=== PATIENT | female | born 1965 | race African-American/Black ===

== ENCOUNTER 2017-10-21 05:35 | Emergency (ER) | payer BC, OTHER ==
[2017-10-21 05:37] VITALS: BP 115/66; PULSE 69; TEMP 97.8; BMI 24.0
--- NOTE | 2017-10-21 07:58 | PDOC ---
History of Present Illness - General Chief Complaint: Vaginal Bleeding Stated Complaint: VAGINAL BLEEDING Time Seen by Provider: 10/21/17 07:21 History Source: Patient Exam Limitations: No Limitations - History of Present Illness Initial Comments: This is a 52 YOF who is currently living in a half-way and who uses crack cocaine (last use 2 wks ago) but otherwise no reported PMH, who p/w irregular menstrual period for the past two months, with continuous bright red menstruation for the past 20 days. She is soaking 5-6 medium-sized pads per day. She has been feeling more tired than normal lately, but otherwise denies any new sxs (no pain anywhere, no NICOLAS, lightheadedness, dizziness, vision changes , fainting, numbness, tingling, weakness, difficulty walking/balancing, chest pain, SOB, abdominal pain, dysuria, vaginal discharge, nausea, vomiting, diarrhea, constipation, rectal bleeding, or other sxs). She has no regular doctor and has not had a pelvic exam in years, though she denies h/o fibroids. Past History - Past Medical History Allergies/Adverse Reactions: Allergies Allergy/AdvReac Type Severity Reaction Status Date / Time No Known Allergies Allergy Verified 10/21/17 05:36 Home Medications: Ambulatory Orders NK [No Known Home Medication] 08/12/16 - Suicide/Smoking/Psychosocial Hx Smoking History: Current every day smoker Have you smoked in the past 12 months: Yes Number of Cigarettes Smoked Daily: 10 Information on smoking cessation initiated: No Hx Alcohol Use: No Drug/Substance Use Hx: No Review of Systems - Review of Systems Able to Perform ROS?: Yes Constitutional: Yes: Other (tiredness). No: Chills, Fever, Unexplained wgt Loss HEENTM: No: Nose Congestion, Throat Pain Respiratory: No: Cough, Shortness of Breath Cardiac (ROS): No: Chest Pain, Palpitations ABD/GI: No: Constipated, Diarrhea, Nausea, Vomiting : Yes: Other (vaginal bleeding). No: Burning, Dysuria Musculoskeletal: No: Back Pain, Neck Pain Integumentary: No: Bruising, Rash Neurological: No: Headache, Numbness, Tingling, Weakness, Dizziness Endocrine: No: Unexplained Weight Gain, Unexplained Weight Loss *Physical Exam - Vital Signs Last Vital Signs Temp Pulse Resp BP Pulse Ox 97.8 F 69 20 115/66 100 10/21/17 05:36 10/21/17 05:36 10/21/17 05:36 10/21/17 05:36 10/21/17 05:36 - Physical Exam General Appearance: Yes: Nourished, Appropriately Dressed, Other (sleeping on hospital bed, appears tired, asks to be left alone to sleep and asks for a breakfast tray, answering questions appropriately). No: Apparent Distress HEENT: positive: EOMI, ALESIA, Normal Voice, Hearing Grossly Normal. negative: Scleral Icterus (R), Scleral Icterus (L), Nasal Congestion Neck: positive: Trachea midline, Supple. negative: Tender, Rigid Respiratory/Chest: positive: Lungs Clear, Normal Breath Sounds. negative: Respiratory Distress, Crackles, Rhonchi, Stridor, Wheezing Cardiovascular: positive: Regular Rhythm, Regular Rate, S1, S2. negative: Edema , JVD, Murmur Female Pelvic Exam: positive: other (pants soaked through with about 1/2 cup bright red blood, external exam normal other than moderate amount of blood with active bleeding, bimanual exam with uterine fullness but no firm masses, no tenderness, normal adnexa and no CMT) Gastrointestinal/Abdominal: positive: Normal Bowel Sounds, Flat, Soft. negative : Tender, Organomegaly, Pulsatile Mass, Guarding Musculoskeletal: positive: Normal Inspection. negative: Decreased Range of Motion, Vertebral Tenderness Extremity: positive: Normal Capillary Refill, Normal Inspection, Normal Range of Motion. negative: Tender, Cyanosis Integumentary: positive: Normal Color, Dry, Warm. negative: Erythema, Rash, Bruising Neurologic: positive: cras II-XII NML intact (grossly), Fully Oriented, Alert, Normal Mood/Affect, Normal Response, Motor Strength 5/5. negative: EOM Palsy, Facial Droop, Numbness, Sensory Deficit, Confused, Disoriented ED Treatment Course - LABORATORY CBC & Chemistry Diagram: 10/21/17 09:06 10/21/17 09:06 Medical Decision Making - Medical Decision Making Adult female patient p/w vaginal bleeding. Initial Vital Signs Temp Pulse Resp BP Pulse Ox 97.8 F 69 20 115/66 100 10/21/17 05:36 10/21/17 05:36 10/21/17 05:36 10/21/17 05:36 10/21/17 05:36 Exam: patient appears a bit tired, but answering appropriately, nontender abdomen, moderate vaginal bleeding and uterine fullness on bimanual exam. DDX IBNLT: fibroid, menopause, dysmenorrhea/menorrhagia, vaginal fissure, vaginal candidiasis, other vaginal infection, hematuria, rectal bleeding, hemorrhagic ovarian cyst, ectopic , cervicitis, malignancy, endometriosis, etc. W/U ordered: CBCD CMP TSH Coags T&S UA UCx US TX ordered: None at this time Unlikely vaginal candidiasis as pt denies itching, no discharge seen, no reported h/o yeast infections. Unlikely other vaginal infection as no abnormal discharge is seen on exam, pt denies discharge or new odor. Unlikely ovarian torsion as patient has no adnexal ttp on bimanual exam. Unlikely ovarian cyst as patient denies h/o ovarian cysts, unlikely hemorrhagic as pt denies sxs of anemia. Unlikely ectopic at patient denies known , no prior procedure or infection. Unlikely PID/TOA/cervicitis as patient denies h/o STIs, no report of abnormal discharge no adnexal ttp Unlikely endometritis as patient is not recently , no procedures, no abnormal discharge. Unlikely malignancy as patient has no palpable mass, no reported recent B symptoms. Labs: Reassessment: Repeat VS: The patient has gotten significant relief of symptoms with ED medications. Workup is not concerning for emergency-level pathology at this time. The patient is appropriate for discharge with close outpatient follow up. The patient is given PCP referral information. She will follow up with a PCP in the next 1-3 days. Return precautions are discussed and they will come back to the ER if necessary. 10/21/17 08:40 *DC/Admit/Observation/Transfer Diagnosis at time of Disposition: Vaginal bleeding Anemia Qualifiers: Anemia type: unspecified type Qualified Code(s): D64.9 - Anemia, unspecified - Discharge Dispostion Disposition: HOME Condition at time of disposition: Stable Admit: No - Referrals Referrals: [facility] [place] [[place] Group] - Patient Instructions Additional Instructions: You were seen in the ER for vaginal bleeding. You have anemia on your laboratory work and need close follow up with a transfer operator. We are contacting the gynecology clinic at [facility]: at [address] [place] [address], [address] [place] [address]. Please go to there clinic for followup this week. After our assessment, we do not believe you are having a medical emergency at this time, and we believe you are safe to go home. Please follow up with a PCP doctor in 1-3 days. We are giving you referral information for our primary care clinic as well. Call their clinic as soon as possible, tell them you were seen in the ER, and tell them you need an appointment. If you have any new or worsening symptoms, please come back to the ER at any time (24 hours a day). If you are having severe or life threatening symptoms, or symptoms that make it unsafe to drive or have someone drive you, please call 911. - Post Discharge Activity
[2017-10-21 09:23] LABS: BASO % 0.8 % (0-2.0); EOS % 3.1 % (0-4.5); HEMATOCRIT 27.9 % (32.4-45.2); HEMOGLOBIN 8.8 GM/dL (10.7-15.3); LYMPH % 34.9 % (8-40); MCHC 31.6 g/dl (32.0-36.0); MEAN CELL VOLUME 82.3 fl (80-96); MEAN PLT VOLUME 7.9 fl (7.5-11.1); MONO % 6.7 % (3.8-10.2); NEUT % 54.5 % (42.8-82.8); PLATELET COUNT 344 K/MM3 (134-434); RBC 3.39 M/mm3 (3.60-5.2); RDW 15.8 % (11.6-15.6); WHITE BLOOD COUNT 4.5 K/mm3 (4.0-10.0)
[2017-10-21 09:51] LABS: INR 0.96 (0.82-1.09); PROTHROMBIN TIME (PATIENT) 10.9 SEC (9.7-13.0)
[2017-10-21 10:03] LABS: HCG,QUALITATIVE URINE NEGATIVE
[2017-10-21 10:07] LABS: URINE APPEARANCE CLOUDY; URINE BILIRUBIN NEGATIVE (<2.0 mg/dL); URINE BLOOD 3+ (NEGATIVE); URINE COLOR AMBER; URINE GLUCOSE (UA) NEGATIVE (NEGATIVE); URINE KETONE NEGATIVE (NEGATIVE); URINE LEUK ESTERASE NEGATIVE (NEGATIVE); URINE NITRITE NEGATIVE (NEGATIVE)
[2017-10-21 10:13] LABS: URINE PROTEIN 2+ (NEGATIVE)
[2017-10-21 10:18] LABS: URINE MUCUS RARE
[2017-10-21 10:23] LABS: CHLORIDE 112 mmol/L (98-107); POTASSIUM 4.3 mmol/L (3.5-5.1); SODIUM 141 mmol/L (136-145)
--- NOTE | 2017-10-21 10:25 | PDOC ---
Attending Attestation - Resident Resident Name: UshaDinora - ED Attending Attestation I have performed the following: I have examined & evaluated the patient, The case was reviewed & discussed with the resident, I agree w/resident's findings & plan - HPI HPI: 10/21/17 10:25 52-year-old female history of polysubstance abuse and longterm resident presents with dysfunctional heavy bleeding that has been ongoing, now with generalized weakness but no coronary pulmonary complaints. No pain. - Physicial Exam PE: 10/21/17 10:26 Vital signs stable Abdomen benign Positive blood in vault with active oozing from os - Medical Decision Making 10/21/17 10:26 Patient seen and evaluated with the resident. I agree with the overall evaluation, assessment, and management with the following summary of visit: 52-year-old female primary menopause with irregular menses and now persistent vaginal bleeding, generalized weakness suggestive of anemia, but hemodynamically stable with benign abdominal exam. Labs notable for hemoglobin of 8.8, decreased from her baseline of 10. No indication for emergent transfusion Planned ultrasound of the pelvis and prompt ORGAN TEACHER follow-up, patient became disgruntled and abusive toward staff, wanted to leave. We'll call [facility] for walk-in appointment as she will need her vaginal bleeding controlled, possibly with OCPs. Understands return criteria.
[2017-10-21 10:45] LABS: ALBUMIN 2.9 g/dl (3.4-5.0); ALK PHOS 65 U/L (45-117); ANION GAP 6 (8-16); BILIRUBIN,TOTAL 0.3 mg/dL (0.2-1.0); BLOOD UREA NITROGEN 10 mg/dL (7-18); CALCIUM 8.5 mg/dL (8.5-10.1); CO2 23 mmol/L (21-32); CREATININE 0.7 mg/dL (0.55-1.02); GLUCOSE,RANDOM 79 mg/dL (74-106); SGOT/AST 13 U/L (15-37); SGPT/ALT 8 U/L (12-78); TOT PROT 6.6 g/dl (6.4-8.2)
== END 2017-10-21 10:24 | disposition home or self-care (01) ==
LOC: JER 05:35
DX: N92.4 Excessive bleeding in the premenopausal period (principal); D64.9 Anemia, unspecified; F17.210 Nicotine dependence, cigarettes, uncomplicated; F14.10 Cocaine abuse, uncomplicated; Z59.0 Homelessness
CPT/HCPCS: 36415; 80053; 81003; 81015; 84443; 84703; 85025; 85610; 86850; 86900; 86901; 99281-25

== ENCOUNTER 2023-05-13 17:17 | Emergency (ER) | payer OTHER ==
[2023-05-13 17:49] VITALS: BP 117/71; PULSE 97; RESP 18; TEMP 98.3; BMI 23.1
[2023-05-13 20:28] LABS: PH,URINE 5.5 (5.0-8.0); URINE APPEARANCE CLEAR; URINE BILIRUBIN NEGATIVE (NEGATIVE); URINE COLOR YELLOW; URINE GLUCOSE (UA) NEGATIVE (NEGATIVE); URINE KETONE NEGATIVE (NEGATIVE); URINE LEUK ESTERASE NEGATIVE (NEGATIVE); URINE NITRITE NEGATIVE (NEGATIVE); URINE PROTEIN NEGATIVE (NEGATIVE)
[2023-05-13 20:53] LABS: HCG,QUALITATIVE URINE Negative
== END 2023-05-13 20:30 | disposition left against medical advice (07) ==
LOC: JER 17:17
DX: Z59.00 Homelessness unspecified (principal)
CPT/HCPCS: 81003; 84703; 87086; 99283-25

== ENCOUNTER 2023-08-12 12:25 | Emergency (ER) | payer OTHER ==
[2023-08-12 12:32] VITALS: BP 126/80; PULSE 63; RESP 19; TEMP 98; BMI 23.9
== END 2023-08-12 14:21 | disposition left against medical advice (07) ==
LOC: JER 12:25
DX: R10.9 Unspecified abdominal pain (principal)
CPT/HCPCS: 84703; 99283-25

== ENCOUNTER 2024-08-20 18:48 | Emergency (ER) | payer SELFPAY ==
[2024-08-20 18:59] VITALS: BP 158/101; PULSE 83; RESP 18; TEMP 98.1; BMI 23.0
== END 2024-08-20 21:00 | disposition left against medical advice (07) ==
LOC: JER 18:48
DX: Z53.21 Procedure and treatment not carried out due to patient leaving prior to being seen by health care provider (principal)
CPT/HCPCS: 99281-25